=== PATIENT | male | born 1965 | race Caucasian/White ===

== ENCOUNTER 2025-01-12 07:14 | Outpatient (CLI) | payer BC, SELFPAY ==
--- NOTE | ~2025-01-12 | MR_ITS ---
EXAMINATION: MR foot RT wo con DATE: 01/12/2025 08:14 INDICATION: Right foot pain post fall 8 months prior TECHNIQUE: Magnetic resonance imaging (MRI) of the right fore/mid foot was performed without intravenous contrast. Sequences included sagittal T1-weighted FSE, sagittal fluid sensitive FSE STIR, coronal PD-weighted FS FSE, coronal T1- weighted FSE, axial PD-weighted FS FSE, and axial PD-weighted FSE. COMPARISON: None FINDINGS: Bone alignment is normal. Mild polyarticular osteoarthritis in the mid and forefoot most prominent at the second metatarsophalangeal joint where there is subarticular edema-like signal change at the head of the second metatarsal and at several of the tarsal metatarsal joints. Small low signal intensity bone island at the medial cuneiform. Marrow signal is otherwise normal with no fracture or pathologic marrow replacing process. The Lisfranc ligament complex along with the collateral ligament complex at the metatarsophalangeal and interphalangeal joints are normal. Visualized portion of the flexor and extensor tendons are normal. Intrinsic musculature of the foot is unremarkable. There is mild subcutaneous edema at the dorsal midfoot surrounding a 5 mm T2 hyperintense likely ganglion cyst located dorsal to the base of the fourth metatarsal and which underlies the marker at the site of pain. IMPRESSION: 1. Small ganglion cyst was some surrounding subcutaneous edema dorsal to the base of the fourth metatarsal and underlying the marker indicating the site of pain. 2. Mild polyarticular osteoarthritis in the mid and forefoot. Reviewed, dictated and finalized at location A. [facility] IMPRESSION: 1. Small ganglion cyst was some surrounding subcutaneous edema dorsal to the ba se of the fourth metatarsal and underlying the marker indicating the site of pa in. 2. Mild polyarticular osteoarthritis in the mid and forefoot.
== END 2025-01-12 07:15 | disposition home or self-care (01) ==
LOC: MICIMG 07:16
PROVIDERS: PCP Family Medicine; Visit Provider Family Medicine
DX: M19.071 Primary osteoarthritis, right ankle and foot (principal)
CPT/HCPCS: 73718